=== PATIENT | female | born 1965 | race African-American/Black ===

== ENCOUNTER 2019-11-29 12:31 | Emergency (ER) | payer BC ==
[~2019-11-29] VITALS: Ht 162.6 cm; Wt 90.7 kg
--- NOTE | 2019-11-29 12:48 | NUR ---
ED Nurse Note: Pt ambulated to ed c/o left wrist rash with blister and left rubi has red circular rash with left ankle swelling sicne .
[2019-11-29 12:50] VITALS: BP 146/79
--- NOTE | 2019-11-29 12:52 | NUR ---
ER DISCHARGE NOTE: Patient is cleared to be discharged per ERMD, pt is aox4, on room air, with stable vital signs. pt was given dc and prescription instructions, pt was able to verbalize understanding, pt id band removed. pt is able to ambulate with steady gait. pt took all belongings.
[2019-11-29 12:53] VITALS: BP 137/81
[2019-11-29] MEDS ORDERED: CEPHALEXIN500 MG ORAL (12:53)
--- NOTE | 2019-11-29 13:08 | Emergency Room Report ---
History of Present Illness General Chief Complaint: Skin Rash/Abscess Source: Patient Present Illness HPI Disclaimer: Please note that this report is being documented using DRAGON technology. This can lead to erroneous entry secondary to incorrect interpretation by the dictating instrument. HPI: 54-year-old female presents for evaluation of rash on her wrist and ankle. 2 days ago she believes she was bit by an insect on the left wrist and left ankle. She was scratching the area on her wrist accidentally opened and had a growing firm scab. Noted some surrounding erythema today. No longer itching. Denies pain. Want to get them checked out. Denies skin breakdown otherwise, fever, chills, vomiting, diarrhea. No other rash to the rest of the body. Denies history of drug allergy or reaction. PMH: Denied PSH: Denied Allergies: Denied Social Hx: Denied drug or alcohol abuse Allergies: Coded Allergies: No Known Allergies (Unverified , 11/29/19) COVID-19 Screening Contact w/high risk pt: No Experienced COVID-19 symptoms?: No COVID-19 Testing performed UX RESEARCHER: No Patient History Last Menstrual Period: A YEAR Nursing Documentation-PMH Past Medical History: No Stated History Review of Systems All Other Systems: negative except mentioned in HPI Physical Exam Vital Signs Date Time Temp Pulse Resp B/P (MAP) Pulse Ox O2 Delivery O2 Flow Rate FiO2 11/29/19 12:44 98.4 76 19 146/79 (101) 100 Room Air General: Awake and alert, no acute distress HEENT: NC/AT. EOMI. Resp: Normal work of breathing Skin: There is a region of erythema with overlying scab over the dorsal aspect of the left wrist approximately 1 cm in diameter. No fluctuance, no surrounding purulent drainage. There is mild erythema but no warmth. Similar lesions over the left ankle and mid rubi. Nikolsky negative. Remainder of skin otherwise unremarkable over the exposed areas. MSK: Normal tone and bulk. Moving all extremities. No obvious deformity. Neuro: Awake and alert. Mentating appropriately Medical Decision Making Diagnostic Impression: Primary Impression: Cellulitis Additional Impression: Insect bite ER Course Is a 54-year-old female presenting for evaluation of possible bug bites. It does appear the patient was likely bit by an insect with mild surrounding cellulitis on the area of the wrist. The lesions of the lower extremities appear to be healing well without signs of secondary infection. Likely a superficial infection from scratching and opening the wound yesterday. We will start her on Keflex and discussed strict return precautions. No other complaints or concerns from patient at this time. Do not believe she requires emergent labs or imaging. Advised to follow-up with PMD and return to the ED with any new or worsening symptoms. She understands and agrees with the treatment plan. Last Vital Signs Date Time Temp Pulse Resp B/P (MAP) Pulse Ox O2 Delivery O2 Flow Rate FiO2 11/29/19 12:53 98.2 72 19 137/81 98 Room Air Disposition: HOME, SELF-CARE Condition: Stable Scripts Cephalexin* (KEFLEX*) 500 Mg Capsule 500 MG ORAL EVERY 12 HOURS for 7 Days, #14 CAP 0 Refills Prov: Lake Torres MD 11/29/19 Referrals: [facility] Patient Instructions: Cellulitis Additional Instructions: Take antibiotics as prescribed. Finish the entire course of antibiotics even if symptoms improve over the next few days. If you notice severe swelling, redness or spreading of the infection return to the ED for reevaluation. Please follow-up with your primary care doctor in the next 1 to 3 days to discuss this emergency department visit and for reevaluation. If you have any new or worsening symptoms please return to the emergency department for reevaluation. Please note that this report is being documented using DidLog technology. This can lead to erroneous entry secondary to incorrect interpretation by the dictating instrument. Lake Torres MD Nov 29, 2019 13:08
== END 2019-11-29 12:55 | disposition home or self-care (01) ==
LOC: EMR 12:50
DX: L03.114 Cellulitis of left upper limb (principal); S60.862A Insect bite (nonvenomous) of left wrist, initial encounter; S90.562A Insect bite (nonvenomous), left ankle, initial encounter; W57.XXXA Bitten or stung by nonvenomous insect and other nonvenomous arthropods, initial encounter; Y92.9 Unspecified place or not applicable
CPT/HCPCS: 99282